=== PATIENT | female | born 1955 | race Caucasian/White ===

== ENCOUNTER 2023-02-08 06:12 | Day surgery (SDC) | payer MEDICARE ==
[2023-02-03 14:04] VITALS: BMI 35.2
[2023-02-08] MEDS ORDERED: Dexmedetomidine 200 MCG/2 ML VIAL ONE (06:35)
[2023-02-08] MEDS ORDERED: SUGAMMADEX SODIUM 200 MG/2 ML VIAL ONE (06:35)
[2023-02-08] MEDS ORDERED: Lidocaine 1% PF 5 ML VIAL ONE (08:26)
[2023-02-08] MEDS ORDERED: PROPOFOL 20 ML ONE (08:26)
[2023-02-08] MEDS ORDERED: Dexamethasone 20 MG/5 ML VIAL ONE (08:26)
[2023-02-08] MEDS ORDERED: Ondansetron PF 4 MG/2 ML Vial ONE (08:26)
[2023-02-08] MEDS ORDERED: fentaNYL 50 mcg/mL 1 mL Vial ONE (08:27)
[2023-02-08] MEDS ORDERED: Midazolam HCl 2 mg/2 ml Vial ONE (08:27)
[2023-02-08] MEDS ORDERED: EPINEPHrine 1 MG/ML VIAL ONE ×2 (09:11→09:12)
[2023-02-08] MEDS ORDERED: traMADol HCl 50 MG TAB ONE (11:01)
== END 2023-02-08 11:50 | disposition home or self-care (01) ==
LOC: CSHSDC 06:12
PROVIDERS: ATTEND Otolaryngology Otolaryngic Allergy
PROC: 0CDV8ZZ Extraction of Left Vocal Cord, Via Natural or Artificial Opening Endoscopic (ICD-10-PCS; principal; 2023-02-08)
DX: J38.3 Other diseases of vocal cords (principal); K21.9 Gastro-esophageal reflux disease without esophagitis; E03.9 Hypothyroidism, unspecified; E04.1 Nontoxic single thyroid nodule; F17.210 Nicotine dependence, cigarettes, uncomplicated; F41.8 Other specified anxiety disorders; Z90.710 Acquired absence of both cervix and uterus; Z88.6 Allergy status to analgesic agent; Z90.49 Acquired absence of other specified parts of digestive tract; Z79.899 Other long term (current) drug therapy
CPT/HCPCS: 31540; J0171; J3010; 88305; J1100; J2250; J2405; J2704